=== PATIENT | female | born 1990 | race Caucasian/White ===

== ENCOUNTER 2018-02-24 21:00 | Emergency (ER) | payer BC, OTHER ==
[~2018-02-24] VITALS: Ht 167.6 cm; Wt 109.0 kg
[2018-02-24 21:35] LABS: BASOPHILS % (AUTO) 0.5 % (0-1); EOSINOPHILS # (AUTO) 0.3 X10'3 (0-0.9); HEMATOCRIT 41.7 % (35.0-45.0); HEMOGLOBIN 14.1 g/dl (12.0-16.0); LYMPHOCYTES # (AUTO) 3.2 X10'3 (1.1-4.8); LYMPHOCYTES % (AUTO) 37.6 % (21-51); MEAN CORPUSCULAR HEMOGLOBIN 31.4 PG (27.0-31.0); MEAN CORPUSCULAR HGB CONC 33.7 % (33.0-36.5); MEAN PLATELET VOLUME 7.8 FL (7.4-10.4); MONOCYTES # (AUTO) 0.6 X10'3 (0-0.9); MONOCYTES % (AUTO) 6.8 % (2-12); NEUTROPHILS # (AUTO) 4.3 X10'3 (1.8-7.7); NEUTROPHILS % (AUTO) 51.1 % (42-75); PLATELET COUNT 335 X10'3 (140-440); RED BLOOD COUNT 4.48 X10'6 (4.20-5.60); RED CELL DISTRIBUTION WIDTH 12.6 % (11.5-14.5); WHITE BLOOD COUNT 8.4 X10'3 (4.5-11.0)
--- NOTE | 2018-02-24 21:36 | NUR ---
Pt's mother just arrived. 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 Dr. Kendrick at bedside and reports to pt that if she has been taking her eloquist as perscribed she has a low likelihood of having a blood clot, but he will check a ddimer initially. pt with stable vs. RR 18 and regular and sats on RA 100%. Pt also reporting that 2 days ago she felt a sharp cramp to her left posterior calf and has been having intermittent tingling and cramping to that area. She currently denies any discomfort to the area. Dr. Kendrick notified.
[2018-02-24 21:42] LABS: ALANINE AMINOTRANSFERASE 19 U/L (12-78); ALBUMIN/GLOBULIN RATIO 1.1 (1.1-1.5); ALKALINE PHOSPHATASE 56 IU/L (46-116); ANION GAP 11 (8-16); ASPARTATE AMINO TRANSFERASE 14 U/L (10-37); BILIRUBIN,TOTAL 0.3 MG/DL (0.1-1.0); BLOOD UREA NITROGEN 7 MG/DL (7-18); BUN/CREATININE RATIO 7.5 (6.6-38.0); CALCIUM 9.8 MG/DL (8.5-10.1); CHLORIDE 103 MMOL/L (99-107); CREATININE 0.93 MG/DL (0.40-0.90); GLUCOSE 103 MG/DL (70-104); SODIUM 139 MMOL/L (135-145); TOTAL PROTEIN 7.8 G/DL (6.4-8.2); eGFR 71 ML/MIN
[2018-02-24 21:44] LABS: INR 1.1 INR; PARTIAL THROMBOPLASTIN TIME 28 SECONDS (22-32); PROTHROMBIN TIME 10.7 SECONDS (9.0-12.0)
[2018-02-24 21:46] LABS: POTASSIUM 2.9 MMOL/L (3.5-5.1)
[2018-02-24] MEDS: potassium Cl 20 mEq SR tablet PO ONE (21:59)
--- NOTE | 2018-02-24 22:23 | NUR ---
Dr. Kendrick talking with pt and her family about d-dimer result that is negative and there is no need for ct or further testing at this time. Also talking with her about her low potassium. pt qwith stable vs. Pt to be discharged.
[2018-02-24 22:25] VITALS: BP 115/72
== END 2018-02-24 22:37 | disposition home or self-care (01) ==
LOC: ER 21:01
DX: J06.9 Acute upper respiratory infection, unspecified (principal); R06.02 Shortness of breath; R07.9 Chest pain, unspecified; Z86.718 Personal history of other venous thrombosis and embolism; Z86.711 Personal history of pulmonary embolism
CPT/HCPCS: 36415; 71045; 80053; 84484; 85025; 85379; 85610; 85730; 93005; 99284

== ENCOUNTER 2018-11-23 11:16 | Day surgery (SDC) | payer OTHER ==
[2018-11-13 14:03] LABS: BASOPHILS # (AUTO) 0.1 X10'3 (0-0.2); BASOPHILS % (AUTO) 1.2 % (0-1); EOSINOPHILS # (AUTO) 0.2 X10'3 (0-0.9); EOSINOPHILS % (AUTO) 3.2 % (0-6); LYMPHOCYTES # (AUTO) 2.1 X10'3 (1.1-4.8); LYMPHOCYTES % (AUTO) 32.8 % (21-51); MEAN CORPUSCULAR HGB CONC 34.4 g/dL (33.0-36.5); MEAN PLATELET VOLUME 7.3 FL (7.4-10.4); MONOCYTES # (AUTO) 0.5 X10'3 (0-0.9); MONOCYTES % (AUTO) 7.5 % (2-12); NEUTROPHILS # (AUTO) 3.5 X10'3 (1.8-7.7); NEUTROPHILS % (AUTO) 55.3 % (42-75); PRE OP HEMATOCRIT 39.2 % (35.0-45.0); PRE OP HEMOGLOBIN 13.5 g/dL (12.0-16.0); PRE OP PLATELET COUNT 300 X10'3 (140-440); RED BLOOD COUNT 4.21 X10'6 (4.20-5.60); RED CELL DISTRIBUTION WIDTH 13.1 % (11.5-14.5)
[2018-11-13 14:15] LABS: PRE OP PROTIME 10.7 SECONDS (9.0-12.0)
[2018-11-13 14:16] LABS: ALKALINE PHOSPHATASE 65 IU/L (46-116); BLOOD UREA NITROGEN 9 MG/DL (7-18); BUN/CREATININE RATIO 9.9 (6.6-38.0); CALCIUM 8.7 MG/DL (8.5-10.1); CHLORIDE 106 MMOL/L (99-107); CREATININE 0.91 MG/DL (0.40-0.90); PRE OP ALT 24 U/L (30-65); PRE OP ANION GAP 9 (8-16); PRE OP AST 20 U/L (10-37); PRE OP BILIRUB, TOTAL 0.4 MG/DL (0.0-1.0); PRE OP GLUCOSE 87 MG/DL (70-104); PRE OP POTASSIUM 4.2 MMOL/L (3.4-5.1); PRE OP SODIUM 141 MMOL/L (135-145); TOTAL PROTEIN 7.9 G/DL (6.4-8.2); eGFR 73 ML/MIN
[~2018-11-23] VITALS: Ht 167.6 cm; Wt 110.7 kg
[2018-11-23] VITALS (11 sets, daily range): BP systolic 108–141; BP diastolic 58–79
[~2018-11-23 11:16] MED LIST: APIX5TAB3 PO; ASCO500C15 PO; CALC-206 PO; CIDE300T3 PO; MULT-933 PO; [UNRECOGNIZED DRUG - CODE] PO; famotidine 20mg tablet PO ONE; ringers solution, lacted 1,000 ML IV SCH
[2018-11-23] MEDS ORDERED: LIDOcaine 1% (10mg/ml) 2ml vial ONE (11:42)
[2018-11-23] MEDS ORDERED: famotidine 20mg tablet PO ONE (12:10)
[2018-11-23] MEDS ORDERED: cefazolin/dext.iso 2gm/50ml 50 ML IV ONE (12:45)
[2018-11-23] MEDS ORDERED: midazolam 2 mg/2 ml injection ONE (13:35)
[2018-11-23] MEDS ORDERED: BUPIVACAINE liposomal/PF 13.3 MG/ML vial IM ONE (13:41)
[2018-11-23] MEDS ORDERED: BUPIVAcaine/PF 2.5 mg/ml (0.25%) 30ml vial ONE ×2 (13:41→13:46)
[2018-11-23] MEDS ORDERED: sevoflurane 250ml liquid IH ONE (14:04)
[2018-11-23] MEDS ORDERED: fentaNYL/PF 50MCG/1 ML 2ML syringe ONE (14:07)
[2018-11-23] MEDS ORDERED: MIDAZolam 5mg/5ml vial ONE (14:07)
[2018-11-23] MEDS ORDERED: ringers solution, lacted 1,000 ML IV SCH (15:12)
[2018-11-23] MEDS ORDERED: ondansetron/PF 4mg/2ml inj IV PRN (15:15)
[2018-11-23] MEDS ORDERED: morphine 4 MG/ML inj SYRINge IV PRN ×2 (15:15)
[2018-11-23] MEDS ORDERED: proCHLORperazine 10 MG/2 ml inj IV PRN (15:15)
[2018-11-23] MEDS ORDERED: meperidine/PF 25mg/ml syringe IV PRN ×3 (15:15)
[2018-11-23] MEDS ORDERED: propofol inj 20 ML IV ONE (15:51)
--- NOTE | 2018-11-23 15:55 | NUR ---
Received from OR via BED, accompanied by Anesthesiologist DR ORLANDO and report given by Anesthesiologist. PT DROWSY, DENIES PAIN, LEFT SHOULDER W/DRSG, SHOULDER WRAP, ICE PACK CDI. Addendum: 11/23/18 at 1611 by Alana Parish RN Amended: Links added.
[2018-11-23] MEDS ORDERED: HYDROcodone/acetaminophen 10/325mg tab PO PRN (16:10)
[2018-11-23] MEDS ORDERED: CRANBERRY FRUIT PO SCH (16:20)
[2018-11-23] MEDS ORDERED: CIDER VINEGAR PO SCH (16:20)
[2018-11-23] MEDS ORDERED: CALCIUM PO SCH (16:20)
[2018-11-23] MEDS ORDERED: METHYLSULFONYLMETHANE PO SCH (16:20)
--- NOTE | 2018-11-23 17:35 | NUR ---
D/C INSTRUCTIONS GIVEN AND GONE OVER W/PT AND PTS MOTHER, BOTH VERBALIZE UNDERSTANDING, PT D/CD TO HOME VIA W/C TO PRIVATE VEHICLE W/O INCIDENT. Addendum: 11/23/18 at 1745 by Alana Parish RN Amended: Links added.
[2018-11-23] MEDS ORDERED: apixaban 5mg tablet PO SCH (20:00)
[2018-11-23] MEDS ORDERED: ascorbic acid 500mg tablet PO SCH (20:00)
[2018-11-24] MEDS ORDERED: multivitamins, therapeutics tablet PO SCH (08:00)
== END 2018-11-23 17:35 | disposition home or self-care (01) ==
LOC: PAS 11:16
PROVIDERS: ATTEND Orthopaedic Surgery
DX: S43.432A Superior glenoid labrum lesion of left shoulder, initial encounter (principal); M75.42 Impingement syndrome of left shoulder; M25.312 Other instability, left shoulder; M19.012 Primary osteoarthritis, left shoulder; M75.52 Bursitis of left shoulder; M75.82 Other shoulder lesions, left shoulder; M25.712 Osteophyte, left shoulder; E66.9 Obesity, unspecified; Z68.37 Body mass index [BMI] 37.0-37.9, adult; Z72.89 Other problems related to lifestyle; Z79.899 Other long term (current) drug therapy; Z86.718 Personal history of other venous thrombosis and embolism; Z79.01 Long term (current) use of anticoagulants; X58.XXXA Exposure to other specified factors, initial encounter; Y93.89 Activity, other specified; Y92.89 Other specified places as the place of occurrence of the external cause; Y99.8 Other external cause status; G89.18 Other acute postprocedural pain
CPT/HCPCS: 29807; 29826; 36415; 64415; 71046; 80053; 82948; 85025; 85610; 85730; C1713; C9290; J2001; J2175; J2250; J2704; J3010; J3490; J7120; A4565; A4618; A6449; A7000